=== PATIENT | female | born 1990 | race Two or more races ===

== ENCOUNTER 2019-06-07 11:55 | Outpatient (CLI) | payer MEDICAID ==
--- NOTE | 2019-06-07 13:32 | Ultrasound Report ---
Reason: BREAST PAIN RT Procedure Date: 06/07/2019 Accession Number: [id number] / [id number] Procedure: US - Breast Unilateral Limited CPT Code: Final Report FULL RESULT: EXAM: Breast Unilateral Limited DATE: 06/07/2019 12:36 PM CLINICAL HISTORY: BREAST PAIN RT COMPARISON: None. TECHNIQUE: Targeted ultrasound was performed of the right breast in the area of clinical concern in the right upper outer quadrant. Color Doppler was employed as appropriate. FINDINGS: The entire upper outer quadrant of the right breast was carefully examined with grayscale and limited color Doppler ultrasound. Normal breast tissue is identified. Sonographically, there is no mass, fluid collection or architectural distortion by limited color Doppler. IMPRESSION: Negative examination RECOMMENDATION: Recommend clinical correlation and routine annual Screening mammography starting at the age of 40 unless otherwise clinically indicated. BIRADS CATEGORY 1: Negative RADIA
== END 2019-06-07 11:56 | disposition home or self-care (01) ==
LOC: DI 11:55
PROVIDERS: ATTEND Physician Assistant Medical
DX: N64.4 Mastodynia (principal)
CPT/HCPCS: 76642

== ENCOUNTER 2020-06-14 08:00 | Outpatient (CLI) | payer MEDICAID ==
[2020-06-14 18:12] LABS: BASOPHILS % (AUTO) 0.4 %; EOSINOPHILS # (AUTO) 0.1 10^3/uL (0.0-0.7); EOSINOPHILS % (AUTO) 0.7 %; HCT - HEMATOCRIT 38.6 % (37.0-47.0); HGB - HEMOGLOBIN 11.9 g/dL (12.0-16.0); LYMPHOCYTES % (AUTO) 24.5 %; MEAN CORPUSCULAR HEMOGLOBIN 25.5 pg (27.0-31.0); MEAN CORPUSCULAR HGB CONC 30.8 g/dL (32.0-36.0); MEAN CORPUSCULAR VOLUME 82.7 fL (81.0-99.0); MEAN PLATELET VOLUME 12.6 fL (7.9-10.8); MONOCYTES # (AUTO) 0.6 10^3/uL (0.0-1.0); MONOCYTES % (AUTO) 7.3 %; NEUTROPHILS # (AUTO) 5.4 10^3/uL (1.5-6.6); NEUTROPHILS % (AUTO) 66.9 %; PLT - PLATELET COUNT 217 10^3/uL (130-450); RED BLOOD COUNT 4.67 10^6/uL (4.20-5.40); RED CELL DISTRIBUTION WIDTH 15.1 % (12.0-15.0); WHITE BLOOD COUNT 8.1 x10^3/uL (4.8-10.8)
[2020-06-14 18:34] LABS: ALBUMIN 4.4 g/dL (3.2-5.5); ALBUMIN/GLOBULIN RATIO 1.3 (1.0-2.2); BILIRUBIN,TOTAL 0.6 mg/dL (0.2-1.0); CALCIUM 9.3 mg/dL (8.5-10.3); CREATININE 0.7 mg/dL (0.4-1.0); TOTAL PROTEIN 7.7 g/dL (6.7-8.2)
[2020-06-14 18:44] LABS: THYROID STIMULATING HORMONE 2.4 uIU/mL (0.34-5.60)
== END 2020-06-14 23:59 | disposition home or self-care (01) ==
LOC: LAB.WCP 08:00
PROVIDERS: ATTEND Nurse Practitioner Family
DX: R23.3 Spontaneous ecchymoses (principal); E55.9 Vitamin D deficiency, unspecified; R53.82 Chronic fatigue, unspecified
CPT/HCPCS: 36415; 80053; 82306; 84443; 85025

== ENCOUNTER 2020-12-16 14:38 | Emergency (ER) | payer MEDICAID ==
[2020-12-16 15:13] LABS: BASOPHILS % (AUTO) 0.2 %; HCT - HEMATOCRIT 40.4 % (37.0-47.0); HGB - HEMOGLOBIN 12.9 g/dL (12.0-16.0); LYMPHOCYTES # (AUTO) 1.2 10^3/uL (1.5-3.5); LYMPHOCYTES % (AUTO) 9.5 %; MEAN CORPUSCULAR HEMOGLOBIN 25.3 pg (27.0-31.0); MEAN CORPUSCULAR HGB CONC 31.9 g/dL (32.0-36.0); MEAN CORPUSCULAR VOLUME 79.4 fL (81.0-99.0); MEAN PLATELET VOLUME 10.9 fL (7.9-10.8); MONOCYTES # (AUTO) 0.5 10^3/uL (0.0-1.0); MONOCYTES % (AUTO) 3.9 %; NEUTROPHILS # (AUTO) 10.9 10^3/uL (1.5-6.6); NEUTROPHILS % (AUTO) 86.1 %; PLT - PLATELET COUNT 236 10^3/uL (130-450); RED BLOOD COUNT 5.09 10^6/uL (4.20-5.40); RED CELL DISTRIBUTION WIDTH 15.5 % (12.0-15.0); WHITE BLOOD COUNT 12.7 x10^3/uL (4.8-10.8)
[2020-12-16 15:32] LABS: ALBUMIN 4.8 g/dL (3.2-5.5); ALBUMIN/GLOBULIN RATIO 1.3 (1.0-2.2); BILIRUBIN,TOTAL 0.8 mg/dL (0.2-1.0); CALCIUM 9.7 mg/dL (8.5-10.3); CREATININE 0.8 mg/dL (0.4-1.0); POTASSIUM 4.3 mmol/L (3.5-5.0); TOTAL PROTEIN 8.5 g/dL (6.7-8.2)
--- NOTE | 2020-12-16 15:49 | ED Physician Documentation ---
PD HPI ABD PAIN - Stated complaint Stated Complaint: RLQ PX/CHILLS - Chief complaint Chief Complaint: Abd Pain - History obtained from History obtained from: Patient - History of Present Illness Timing - onset: How many days ago (3-4) Timing - duration: Days (3-4) Timing - details: Gradual onset, Waxing and waning Quality: Cramping, Aching, Pain Location: Periumbilical, RLQ Radiation: No: Lower back, Right flank Improved by: BM Worsened by: Eating Associated symptoms: Nausea, Diarrhea (loose stools to watery without blood nor mucous over the past few days.). No: Fever, Vomiting, Constipation, Dysuria, Loss of appetite, Weight loss Similar symptoms before: Has not had sx before Recently seen: Not recently seen Review of Systems Constitutional: reports: Myalgias. denies: Fever, Chills Nose: denies: Rhinorrhea / runny nose, Congestion Throat: denies: Sore throat Respiratory: denies: Cough GI: reports: Abdominal Pain, Nausea, Diarrhea. denies: Vomiting, Constipation, Bloody / black stool : denies: Dysuria, Frequency Skin: denies: Rash PD PAST MEDICAL HISTORY - Past Medical History Cardiovascular: None Respiratory: None Neuro: None Endocrine/Autoimmune: None GI: None - Past Surgical History Past Surgical History: No - Allergies Allergies/Adverse Reactions: Allergies Allergy/AdvReac Type Severity Reaction Status Date / Time cephalexin [From Keflex] Allergy Hives Verified 12/16/20 15:04 - Living Situation Living Situation: reports: With family Living Arrangement: reports: At home - Social History Does the pt smoke?: No Does the pt drink ETOH?: No Does the pt have substance abuse?: No - Family History Family history: reports: Other (aunt with history of crohns disease; no other members. ) PD ED PE NORMAL - Vitals Vital signs reviewed: Yes - General General: Alert and oriented X 3, No acute distress, Well developed/nourished - Neck Neck: Supple, no meningeal sign, No adenopathy - Cardiac Cardiac: RRR, No murmur - Respiratory Respiratory: Clear bilaterally - Abdomen Abdomen: Normal bowel sounds, Soft, Non distended, No organomegaly, Other (Bone tenderness. NeuroYour with some minimal local guarding in the periumbilical to right lower abdomen. Or tenderness. Bowel sounds are present normally active.) - Female Female : Deferred - Rectal Rectal: Deferred - Back Back: No CVA TTP - Derm Derm: Normal color, Warm and dry - Extremities Extremities: No tenderness to palpate, Normal ROM s pain - Neuro Neuro: Alert and oriented X 3, No motor deficit, Normal speech Results - Vitals Vitals: Vital Signs - 24 hr 12/16/20 12/16/20 14:57 17:03 Temperature 36.6 C Heart Rate 106 H 65 Respiratory 16 18 Rate Blood Pressure 150/88 H 156/85 H O2 Saturation 99 99 Oxygen O2 Source Room air - Labs Labs: Laboratory Tests 12/16/20 12/16/20 12/16/20 15:08 15:08 15:08 WBC 12.7 H RBC 5.09 Hgb 12.9 Hct 40.4 MCV 79.4 L MCH 25.3 L MCHC 31.9 L RDW 15.5 H Plt Count 236 MPV 10.9 H Neut # (Auto) 10.9 H Lymph # (Auto) 1.2 L [place] # (Auto) 0.5 Eos # (Auto) 0.0 Baso # (Auto) 0.0 Absolute Nucleated RBC 0.00 Nucleated RBC % 0.0 ESR 7 Sodium 139 Potassium 4.3 Chloride 104 Carbon Dioxide 24 Anion Gap 11.0 BUN 10 Creatinine 0.8 Estimated GFR (MDRD) 83 L Glucose 125 H Calcium 9.7 Total Bilirubin 0.8 AST 16 ALT 13 Alkaline Phosphatase 64 Total Protein 8.5 H Albumin 4.8 Globulin 3.7 Albumin/Globulin Ratio 1.3 Lipase 28 Urine Color Urine Clarity Urine pH Ur Specific [place] Urine Protein Urine Glucose (UA) Urine Ketones Urine Occult Blood Urine Nitrite Urine Bilirubin Urine Urobilinogen Ur Leukocyte Esterase Ur Microscopic Review Urine Culture Comments Urine HCG, Qual 12/16/20 16:53 WBC RBC Hgb Hct MCV MCH MCHC RDW Plt Count MPV Neut # (Auto) Lymph # (Auto) [place] # (Auto) Eos # (Auto) Baso # (Auto) Absolute Nucleated RBC Nucleated RBC % ESR Sodium Potassium Chloride Carbon Dioxide Anion Gap BUN Creatinine Estimated GFR (MDRD) Glucose Calcium Total Bilirubin AST ALT Alkaline Phosphatase Total Protein Albumin Globulin Albumin/Globulin Ratio Lipase Urine Color YELLOW Urine Clarity CLEAR Urine pH 6.0 Ur Specific [place] 1.025 Urine Protein NEGATIVE Urine Glucose (UA) NEGATIVE Urine Ketones >=80 H Urine Occult Blood NEGATIVE Urine Nitrite NEGATIVE Urine Bilirubin NEGATIVE Urine Urobilinogen 0.2 (NORMAL) Ur Leukocyte Esterase NEGATIVE Ur Microscopic Review NOT INDICATED Urine Culture Comments NOT INDICATED Urine HCG, Qual NEGATIVE - Rads (name of study) abd/pelvic CT Radiology: Prelim report reviewed (A normal appendix is not clearly seen. A structure probably the appendix is seen extending into the pelvis however near the tip of the structure there is a Morphis soft tissue density around the appendiceal tip. Consideration for early distal appendicitis.), See rad report PD MEDICAL DECISION MAKING - ED course Complexity details: reviewed results, re-evaluated patient, considered differential, d/w patient, d/w pmo consultant (S/W Rei Wei - who viewed the CT and on my exam findings, felt the patient could go home and return in 12-24 hours for recheck. Sooner if worse. ) Departure - Departure Disposition: 01 Home, Self Care Clinical Impression: Acute colitis Diarrhea Qualifiers: Diarrhea type: unspecified type Qualified Code(s): R19.7 - Diarrhea, unspecified Abdominal pain Qualifiers: Abdominal location: lower abdomen, unspecified Qualified Code(s): R10.30 - Lower abdominal pain, unspecified Condition: Stable Record reviewed to determine appropriate education?: Yes Instructions: ED Abdominal Pain Appendx Poss Comments: Frequent fluids. Regular bland food diet to begin with. It does sound most likely have a "stomach flu" with the diarrhea and crampy pains. However concern would be for triggering other processes. Your blood tests and CT scan show possible mild inflammation around the tip of the appendix. It is not clearly appendicitis at this point, and may be transient inflammation. We want to see if it progresses over the next day or so. Use ondansetron if needed for nausea. Tylenol if needed for mild pains. Return to the ER for recheck in about 24 hours if not well improved. Return sooner if you have more consistent localized pain particularly the right lower abdomen or if you develop fevers, vomiting, bloody stool or other concerns.
[2020-12-16] MEDS ORDERED: SODIUM CHLORIDE 0.9% 1,000 ML IV STA (16:06)
[2020-12-16] MEDS ORDERED: KETOROLAC 30 MG/ML VIAL IVP STA (16:06)
[2020-12-16] MEDS ORDERED: ONDANSETRON 4 MG/2 ML VIAL IVP STA (16:06)
[2020-12-16] MEDS ORDERED: IOPAMIDOL-300 100 ML VIAL ONE (16:53)
[2020-12-16 17:07] LABS: BILIRUBIN,URINE NEGATIVE (NEGATIVE); GLUCOSE, URINE (UA) NEGATIVE (NEGATIVE); KETONES,URINE (UA) >=80 mg/dL (NEGATIVE); LEUKOCYTE ESTERASE, URINE NEGATIVE (NEGATIVE); NITRITE,URINE NEGATIVE (NEGATIVE); OCCULT BLOOD,URINE NEGATIVE (NEGATIVE); PROTEIN,URINE NEGATIVE (NEGATIVE); UROBILINOGEN,URINE 0.2 (NORMAL) E.U./dL (NORMAL)
[2020-12-16 17:10] LABS: CLARITY,URINE CLEAR (CLEAR); HCG UR QUAL NEGATIVE
[2020-12-16 17:11] VITALS: BP 156/85
[2020-12-16] MEDS ORDERED: IOPAMIDOL-300 100 ML VIAL IVP ONE (17:30)
--- NOTE | 2020-12-16 17:52 | CT Report ---
PROCEDURE: Abdomen/Pelvis W INDICATIONS: mid abd to RLQ pain for few days CONTRAST: IV CONTRAST: Isovue 300 ml: 100 PO CONTRAST: *NO PO CONTRAST TECHNIQUE: After the administration of 100 contrast, 5 mm thick sections acquired from the diaphragms to the sym physis. 5 mm thick coronal and sagittal reformats were acquired. For radiation dose reduction, the following was used: automated exposure control, adjustment of mA and/or kV according to patient size . COMPARISON: None. FINDINGS: Image quality: Excellent. ABDOMEN: Lung bases: Lung bases are clear. Heart size is normal. Solid organs: Liver and spleen are normal in size and enhancement. Gallbladder is normal. Biliary system is non dilated. Pancreas enhances normally. No adrenal nodules. Kidneys demonstrate normal size and enhancement, without hydronephrosis. Peritoneum and bowel: Bowel loops demonstrate normal wall thickness and caliber. No free fluid or a ir. The appendix is not definitively visualized. A structure which is probably the appendix is seen e xtending into the pelvis, however near the tip of this structure there is amorphous soft tissue densi ty around the appendiceal tip and right adnexa. There is fluid in the right pelvis. Nodes and vessels: No retroperitoneal or mesenteric adenopathy by size criteria. Aorta and inferior vena cava are normal in size. Miscellaneous: No ventral hernias. PELVIS: Genitourinary: Bladder wall thickness is normal. The left ovary has multiple cysts, the largest emili suring 2.1 x 1.5 cm. Miscellaneous: No inguinal hernias or adenopathy. Bones: No suspicious bony lesions. No vertebral body compression fractures. IMPRESSION: A normal appendix is not definitively visualized. A structure which is probably appendix extends into the pelvis and terminates within an area of amorphous soft tissue density around the ap pendiceal tip and right adnexa. Differential diagnosis includes appendiceal tip appendicitis or right ovarian/adnexal pathology. Reviewed by: Anjel Del Rio on 12/16/2020 5:51 PM PDT Approved by: Anjel Del Rio on 12/16/2020 5:51 PM PDT Station ID: [id number]
[2020-12-16] MEDS: LOPERAMIDE 2 MG CAPSULE PO STA ×2 (18:17→18:21)
[2020-12-16] MEDS ORDERED: ONDANSETRON ODT 4 MG Prepack 2 TL PRN (18:37)
[2020-12-16] MEDS ORDERED: ACETAMINOPHEN 325 MG TABLET PO STA (18:37)
== END 2020-12-16 18:55 | disposition home or self-care (01) ==
LOC: ED 14:38
DX: K52.9 Noninfective gastroenteritis and colitis, unspecified (principal)
CPT/HCPCS: 36415; 74177; 80053; 81003; 81025; 83690; 85025; 85651; 96361; 96374; 99284; A9270; Q9967; 81001; 87086

== ENCOUNTER 2020-12-26 14:12 | Emergency (ER) | payer MEDICAID ==
--- NOTE | 2020-12-26 16:26 | ED Physician Documentation ---
PD HPI ABD PAIN - Stated complaint Stated Complaint: RECTAL PX/BLEEDING - Chief complaint Chief Complaint: Abd Pain - History obtained from History obtained from: Patient - Additional information Additional information: 30yo F noted rectal lump with bleeding x 6 days. "pinching" pain. Has had diarrhea, improved now. PD PAST MEDICAL HISTORY - Past Medical History Cardiovascular: None Respiratory: None Neuro: None Endocrine/Autoimmune: None GI: None Psych: Anxiety - Past Surgical History Past Surgical History: No - Present Medications Home Medications: Ambulatory Orders Medication Instructions Recorded Confirmed Hydrocortisone [Anusol-Hc] 30 gm RC QID #20 unit 12/26/20 - Allergies Allergies/Adverse Reactions: Allergies Allergy/AdvReac Type Severity Reaction Status Date / Time cephalexin [From Keflex] Allergy Hives Verified 12/26/20 14:28 - Social History Does the pt smoke?: No Smoking Status: Never smoker Does the pt drink ETOH?: No Does the pt have substance abuse?: No PD ED PE NORMAL - Vitals Vital signs reviewed: Yes - Abdomen Abdomen: Normal bowel sounds, Soft, Non tender - Female Female : [employer] Director present, Other (On the left side she has a small acutely thrombosed hemorrhoid) - Neuro Neuro: Alert and oriented X 3, Normal speech Results - Vitals Vitals: Vital Signs - 24 hr 12/26/20 12/26/20 14:24 16:11 Temperature 36.4 C L 37.1 C Heart Rate 78 96 Respiratory 18 24 Rate Blood Pressure 136/82 H 146/90 H O2 Saturation 100 100 Oxygen O2 Source Room air Departure - Departure Disposition: 01 Home, Self Care Clinical Impression: Hemorrhoid Qualifiers: Hemorrhoid type: unspecified Qualified Code(s): K64.9 - Unspecified hemorrhoids Condition: Good Record reviewed to determine appropriate education?: Yes Instructions: ANUSOL-HC Suppositories, ED Hemorrhoids Prescriptions: Hydrocortisone [Anusol-Hc] 30 gm RC QID #20 unit Comments: Follow-up with your new primary care physician as scheduled. Return for new or worsening symptoms.
[2020-12-26 16:43] VITALS: BP 140/80
== END 2020-12-26 16:43 | disposition home or self-care (01) ==
LOC: ED 14:12
DX: K64.5 Perianal venous thrombosis (principal)
CPT/HCPCS: 99282

== ENCOUNTER 2021-04-07 20:59 | Emergency (ER) | payer MEDICAID ==
--- NOTE | 2021-04-07 21:34 | XRAY Report ---
PROCEDURE: Chest 1 View X-Ray INDICATIONS: Chest pain TECHNIQUE: One view of the chest was acquired. COMPARISON: Lung bases on CT abdomen and pelvis 12/16/2020. FINDINGS: Surgical changes and devices: None. Lungs and pleura: No pleural effusions or pneumothorax. Lungs are clear. Mediastinum: Mediastinal contours appear normal. Heart size is normal. Bones and chest wall: No suspicious bony lesions. Overlying soft tissues appear unremarkable. IMPRESSION: No acute cardiopulmonary abnormality. Reviewed by: Russ Rock MD on 04/07/2021 9:32 PM PST Approved by: Russ Rock MD on 04/07/2021 9:32 PM PST Station ID: [id number]
[2021-04-07 21:48] LABS: BASOPHILS % (AUTO) 0.3 %; EOSINOPHILS % (AUTO) 0.2 %; HCT - HEMATOCRIT 38.5 % (37.0-47.0); HGB - HEMOGLOBIN 13.2 g/dL (12.0-16.0); LYMPHOCYTES # (AUTO) 3.1 10^3/uL (1.5-3.5); LYMPHOCYTES % (AUTO) 26.5 %; MEAN CORPUSCULAR HGB CONC 34.3 g/dL (32.0-36.0); MEAN CORPUSCULAR VOLUME 75.9 fL (81.0-99.0); MEAN PLATELET VOLUME 11.7 fL (7.9-10.8); MONOCYTES # (AUTO) 0.8 10^3/uL (0.0-1.0); MONOCYTES % (AUTO) 6.9 %; NEUTROPHILS # (AUTO) 7.6 10^3/uL (1.5-6.6); NEUTROPHILS % (AUTO) 65.8 %; PLT - PLATELET COUNT 231 10^3/uL (130-450); RED BLOOD COUNT 5.07 10^6/uL (4.20-5.40); RED CELL DISTRIBUTION WIDTH 14.7 % (12.0-15.0); WHITE BLOOD COUNT 11.6 x10^3/uL (4.8-10.8)
[2021-04-07 22:07] LABS: ALBUMIN 4.4 g/dL (3.2-5.5); ALBUMIN/GLOBULIN RATIO 1.3 (1.0-2.2); BILIRUBIN,TOTAL 0.7 mg/dL (0.2-1.0); CALCIUM 9.4 mg/dL (8.5-10.3); CREATININE 0.8 mg/dL (0.4-1.0); POTASSIUM 2.9 mmol/L (3.5-5.0); TOTAL PROTEIN 7.7 g/dL (6.7-8.2)
[2021-04-07] MEDS ORDERED: LORazepam 2 MG/ML VIAL IVP STA (22:35)
--- NOTE | 2021-04-07 22:37 | ED Physician Documentation ---
PD HPI DYSPNEA - Stated complaint Stated Complaint: CP, SOA W/ CARDIAC HX - Chief complaint Chief Complaint: Cardiac - Additional information Additional information: Is 30-year-old female presenting to the emergency department with shortness of breath. 1 week history shortness of breath that the patient reports "comes and goes". Today had right-sided chest pain which is what prompted her to come in to the emergency department. Endorses for past medical significant for childhood asthma. States that she has a history of atrial fibrillation and was told by her doctor to not get vaccination for the novel coronavirus because of this condition. Also reports significant life stressors over the course of the last few months. She reports taking Xanax at home to help with her symptoms. States that she was prescribed 14 total Xanax around and has been taking infrequent Xanax since that time. Denies any Alcohol or other illicit substance abuse. Denies suicidal or homicidal ideation. Review of Systems Ten Systems: 10 systems reviewed and negative Constitutional: denies: Fever Eyes: denies: Loss of vision Ears: denies: Loss of hearing Nose: denies: Rhinorrhea / runny nose Throat: denies: Dental pain / toothache Cardiac: reports: Chest pain / pressure Respiratory: reports: Dyspnea GI: denies: Abdominal Pain, Nausea, Vomiting : denies: Dysuria PD PAST MEDICAL HISTORY - Past Medical History Cardiovascular: None Respiratory: None, Asthma Neuro: None Endocrine/Autoimmune: None GI: None Psych: Anxiety - Past Surgical History Past Surgical History: No - Present Medications Home Medications: Ambulatory Orders Medication Instructions Recorded Confirmed Hydrocortisone [Anusol-Hc] 30 gm RC QID #20 unit 12/26/20 Potassium Chloride 20 meq PO DAILY #30 tab 04/08/21 hydrOXYzine HCL [Hydroxyzine HCl] 25 mg PO Q6HR PRN #30 tablet 04/08/21 - Allergies Allergies/Adverse Reactions: Allergies Allergy/AdvReac Type Severity Reaction Status Date / Time cephalexin [From Keflex] Allergy Hives Verified 04/07/21 21:09 - Social History Does the pt smoke?: No Smoking Status: Never smoker Does the pt drink ETOH?: No Does the pt have substance abuse?: No - POLST Patient has POLST: No PD ED PE NORMAL - Vitals Vital signs reviewed: Yes - General General: Alert and oriented X 3 - HEENT HEENT: Atraumatic - Neck Neck: Supple, no meningeal sign - Cardiac Cardiac: RRR - Respiratory Respiratory: No respiratory distress - Abdomen Abdomen: Normal bowel sounds - Female Female : Deferred - Rectal Rectal: Deferred - Extremities Extremities: No deformity - Neuro Neuro: Alert and oriented X 3 - Psych Psych: Other (Anxious affect) Results - Vitals Vitals: Vital Signs - 24 hr 04/07/21 04/07/21 04/07/21 21:01 21:30 22:30 Temperature 36.7 C Heart Rate 130 H 93 75 Respiratory 21 16 15 Rate Blood Pressure 169/130 H 131/88 H 117/78 O2 Saturation 100 98 99 04/07/21 04/07/21 04/07/21 22:45 23:00 23:01 Temperature Heart Rate 71 70 68 Respiratory 14 12 13 Rate Blood Pressure 117/78 122/89 H 122/89 H O2 Saturation 100 99 100 04/07/21 23:47 Temperature Heart Rate 58 L Respiratory 18 Rate Blood Pressure 124/78 O2 Saturation 99 Oxygen O2 Source Room air - EKG (time done) 2102 Rate: Rate (enter#) (130), Jose Daniel Rhythm: NSR [place]: Normal Intervals: Normal [place] QRS: Normal Ischemia: Normal ST segments Computer interpretation: Agree with computer - Labs Labs: Laboratory Tests 04/07/21 04/07/21 04/07/21 21:30 21:30 21:30 WBC 11.6 H RBC 5.07 Hgb 13.2 Hct 38.5 MCV 75.9 L MCH 26.0 L MCHC 34.3 RDW 14.7 Plt Count 231 MPV 11.7 H Neut # (Auto) 7.6 H Lymph # (Auto) 3.1 [place] # (Auto) 0.8 Eos # (Auto) 0.0 Baso # (Auto) 0.0 Absolute Nucleated RBC 0.00 Nucleated RBC % 0.0 D-Dimer Sodium 137 Potassium 2.9 L Chloride 106 Carbon Dioxide 16 L Anion Gap 15.0 H BUN 11 Creatinine 0.8 Estimated GFR (MDRD) 83 L Glucose 118 H Calcium 9.4 Total Bilirubin 0.7 AST 19 ALT 14 Alkaline Phosphatase 59 Troponin I High Sens 4.1 Total Protein 7.7 Albumin 4.4 Globulin 3.3 Albumin/Globulin Ratio 1.3 Lipase 30 04/07/21 22:15 WBC RBC Hgb Hct MCV MCH MCHC RDW Plt Count MPV Neut # (Auto) Lymph # (Auto) [place] # (Auto) Eos # (Auto) Baso # (Auto) Absolute Nucleated RBC Nucleated RBC % D-Dimer 324.7 H Sodium Potassium Chloride Carbon Dioxide Anion Gap BUN Creatinine Estimated GFR (MDRD) Glucose Calcium Total Bilirubin AST ALT Alkaline Phosphatase Troponin I High Sens Total Protein Albumin Globulin Albumin/Globulin Ratio Lipase PD MEDICAL DECISION MAKING - ED course Complexity details: reviewed results, d/w patient ED course: Patient is a 30-year-old female presenting to the emergency department with shortness of breath, chest pain and anxiety. Tachycardic on arrival to the emergency department with sinus tachycardia noted on EKG. Persistent sinus tachycardia noted on telemetry in the emergency department. At no time was anything other than a sinus rhythm identified on continuous telemetry. Comprehensive labs obtained demonstrated a hypokalemia and she was given potassium and magnesium repletion empirically. Additionally nursing staff reported significant anxiety and she was given dose of Ativan in the emergency department. Chest x-ray was nonacute. Her D-dimer was mildly elevated and I did obtain a CT PE protocol which was negative for any acute intrathoracic pathology. She was observed in the emergency department for several hours. On reevaluation she continued to endorse for feeling extremely anxious and short of breath. I reassured her that her evaluation in the emergency department was benign. Notably she was having no difficulty with speech, was not tachypneic, and had appropriate oxygen saturations at all times while in the emergency department. She does have a viral respiratory panel including a novel coronavirus test pending at this time. I did discuss with her the severity of her anxiety and offered to allow her to stay in the emergency department to be evaluated by [employer], or encouraged her to follow-up with her primary care doctor and her primary care psychologist. Additionally I'll discharge her on a short course of Atarax as well as a potassium supplement. Otherwise clear return precautions and follow-up instructions were given prior to discharge. Departure - Departure Disposition: 01 Home, Self Care Clinical Impression: Chest pain, Dyspnea, Hypokalemia, Anxiety Instructions: Hypokalemia Dc, ED Stress React, ED Chest Pain Atypical Unkn Cause Prescriptions: hydrOXYzine HCL [Hydroxyzine HCl] 25 mg PO Q6HR PRN #30 tablet PRN Reason: Agitation Potassium Chloride 20 meq PO DAILY #30 tab Comments: Thank you for allowing us to care for you today at [facility]. All of the testing performed in the emergency department today including your EKG, blood work, x-ray and the CT scan of your chest were all very reassuring. You did have some mild hypokalemia, also known as low blood potassium. I will be discharging with a potassium supplement. Also be writing a prescription for some Atarax to take at home for anxiety. Please follow-up with your primary care doctor soon as possible. If it anytime you have any new or worsening symptoms please not hesitate to return to the emergency department.
[2021-04-07] MEDS ORDERED: POTASSIUM CHLORIDE 20 MEQ/15 ML UDC PO SCH (22:42)
[2021-04-07] MEDS ORDERED: MAGNESIUM OXIDE 400 MG TABLET PO SCH (22:42)
[2021-04-07] MEDS ORDERED: iohexoL-300 100 ML VIAL ONE (22:49)
[2021-04-07 23:48] VITALS: BP 124/78
--- NOTE | 2021-04-07 23:59 | CT Report ---
PROCEDURE: ANGIO CHEST W/WO INDICATIONS: CP, elevated d dimer CONTRAST: IV CONTRAST: Isovue 300 ml: 100 PO CONTRAST: *NO PO CONTRAST TECHNIQUE: After the administration of intravenous contrast, 2 mm axial images were acquired from the pulmonary apices to the posterior costophrenic angles during the arterial phase. In addition, 1 mm lung kernel and 5 mm soft tissue kernel reconstructions were performed. 3-dimensional coronal oblique maximum int ensity projection (MIP) reformats, 8 mm axial MIP, and 5 mm coronal and sagittal MPR reformats were t hen performed through the thorax. For radiation dose reduction, the following was used: automated exp osure control, adjustment of mA and/or kV according to patient size. COMPARISON: 04/07/21 chest plain film. FINDINGS: Image quality: Excellent. Pulmonary arteries: Pulmonary arteries are normal in size, and demonstrate no intraluminal filling d efects to suggest central pulmonary embolism. Lungs and pleura: Lungs are clear. No pleural effusions or pneumothorax. Central and peripheral ai rways are patent. Mediastinum: Heart size is normal, without pericardial effusion. No mediastinal or hilar adenopathy . Thoracic aorta is normal in caliber and enhancement. Esophagus is normal in caliber, without hiat al hernia. Bones and chest wall: No suspicious bony lesions. Ribs and thoracic spine appear intact throughout. No axillary or supraclavicular adenopathy. The thyroid is normal in size and there are no incident al findings. Abdomen: Visualized upper abdominal solid organs appear normal in the early arterial phase of enhanc ement. IMPRESSION: No pulmonary embolus is found, there is no sign of cardiomegaly or CHF. The source of current reporte d chest pain and shortness of breath is not seen. CLINICAL RECOMMENDATION STATEMENTS: In patients <35 years with an ITN detected on CT, MRI, or extrathyroidal ultrasound, the Committee re commends further evaluation with dedicated thyroid ultrasound if the nodule is "e1 cm and has no susp icious imaging features, and if the patient has normal life expectancy. In patients "e35 years with an ITN detected on CT, MRI, or extrathyroidal ultrasound, the Committee r ecommends further evaluation with dedicated thyroid ultrasound if the nodule is "e1.5 cm and has no s uspicious imaging features, and if the patient has normal life expectancy. (ACR, 2014) Reviewed by: Jose Hall MD on 04/07/2021 11:58 PM PST Approved by: Jose Hall MD on 04/07/2021 11:58 PM PST Station ID: [id number]
[2021-04-08] MEDS ORDERED: iohexoL-300 100 ML VIAL IVP ONE (00:46)
== END 2021-04-08 00:27 | disposition home or self-care (01) ==
LOC: ED 20:59
DX: E87.6 Hypokalemia (principal); F41.9 Anxiety disorder, unspecified; R00.0 Tachycardia, unspecified; R06.00 Dyspnea, unspecified; Z20.822 Contact with and (suspected) exposure to COVID-19
CPT/HCPCS: 36415; 71045; 71275; 80053; 83690; 84484; 85025; 85379; 87635; 93005; 99284; A9270; J2060; Q9967

== ENCOUNTER 2021-04-09 08:25 | Emergency (ER) | payer MEDICAID ==
[2021-04-09] MEDS ORDERED: DEXAMETHASONE 10 MG/ML VIAL PO STA (09:14)
[2021-04-09] MEDS ORDERED: CHERRY SYRUP 10 ML UDC PO ONE (09:14)
--- NOTE | 2021-04-09 09:23 | ED Physician Documentation ---
PD HPI DYSPNEA - Stated complaint Stated Complaint: SOA/FEVER/COUGH - Chief complaint Chief Complaint: Resp - History obtained from History obtained from: Patient - History of Present Illness Timing - onset: How many days ago (4) Timing - onset during: Rest Timing - duration: Days (4) Timing - details: Gradual onset, Still present, Still present in ED Inciting event(s): URI Improved by: Rest Worsened by: Exertion, Coughing Associated symptoms: Cough, Anxiety Similar symptoms before: Diagnosis (panic attack) Recently seen: Emergency Dept - Additional information Additional information: 28-year-old female has developed some dyspnea and she has become anxious regarding the dyspnea as she is not immunized against COVID. She was seen in the emergency department and had a thorough work-up done by Dr. Lama [address] days [address] This included [address] angio of the chest. The patient indicates that she is having a difficult time getting a full deep breath and she is becoming more anxious associated with this. She does have a cough she is producing yellow- green phlegm and she has used an inhaler previously. 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 : None HEENT: None Psych: Anxiety Musculoskeletal: None Derm: None - Past Surgical History Past Surgical History: No - Present Medications Home Medications: Ambulatory Orders Medication Instructions Recorded Confirmed Albuterol Sulf [Ventolin Hfa 1 - 2 puffs INH Q4HR PRN #1 inhaler 04/09/21 Inhaler] Alprazolam [Xanax] 0.25 mg PO DAILY PRN 04/09/21 04/09/21 Azithromycin [Zithromax] 250 mg PO DAILY #6 tablet 04/09/21 dexAMETHasone [Decadron] 4 mg PO DAILY #5 tablet 04/09/21 - Allergies Allergies/Adverse Reactions: Allergies Allergy/AdvReac Type Severity Reaction Status Date / Time cephalexin [From Keflex] Allergy Hives Verified 04/09/21 08:38 - Social History Does the pt smoke?: No Smoking Status: Never smoker Does the pt drink ETOH?: No Does the pt have substance abuse?: No - Immunizations Immunizations are current?: No Immunizations: Other immun not current - POLST Patient has POLST: No PD ED PE NORMAL - Vitals Vital signs reviewed: Yes (Tachycardic and hypertensive) - General General: Alert and oriented X 3, Well developed/nourished, Other (Appears anxious and has flattened affect) - HEENT HEENT: Atraumatic, PERRL, EOMI, Ears normal, Moist mucous membranes, Pharynx benign, Dentition benign - Neck Neck: Supple, no meningeal sign, No bony TTP - Cardiac Cardiac: RRR, No murmur - Respiratory Respiratory: No respiratory distress, Other (Diminished breath sounds bilaterally without focal wheezes) - Abdomen Abdomen: Soft, Non tender - Back Back: No CVA TTP, No spinal TTP - Derm Derm: Normal color, Warm and dry, No rash - Extremities Extremities: No deformity, No edema - Neuro Neuro: Alert and oriented X 3, 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, No motor deficit, No sensory deficit, Normal speech Eye Opening: Spontaneous Motor: Obeys Commands Verbal: Oriented GCS Score: 15 - Psych Psych: Normal mood, Normal affect Results - Vitals Vitals: Vital Signs - 24 hr 04/09/21 08:38 Temperature 36.9 C Heart Rate 110 H Respiratory 22 Rate Blood Pressure 126/86 H O2 Saturation 100 Oxygen O2 Source Room air - Rads (name of study) CXR Radiology: Prelim report reviewed (Impression: Normal exam.), EMP read indep edently, See rad report PD MEDICAL DECISION MAKING - ED course Complexity details: reviewed results, re-evaluated patient, considered differential, d/w patient ED course: 30-year-old female with dyspnea and cough productive of phlegm has restriction to her air movement. She is administered dexamethasone orally and a x-ray of her chest is obtained. She has had prior COVID testing results are not back. Second COVID test is administered today. Departure - Departure Disposition: 01 Home, Self Care Clinical Impression: Viral URI with cough Condition: Stable Instructions: ED Bronchitis Asthmatic Follow-Up: Latrice Gold MD [Primary Care Provider] - Prescriptions: Albuterol Sulf [Ventolin Hfa Inhaler] 1 - 2 puffs INH Q4HR PRN #1 inhaler PRN Reason: Shortness Of Air/Wheezing dexAMETHasone [Decadron] 4 mg PO DAILY #5 tablet Azithromycin [Zithromax] 250 mg PO DAILY #6 tablet Comments: Solange, today your chest x-ray is clear. You do have some reactive airway disease and production of sputum consistent with asthmatic bronchitis and we are prescribing some inhaler and antibiotic as well as a short course of steroid. [facility] [place] The expectation is improved breathing day by day. Your COVID test is pending from today and your COVID test from 2 days ago is also pending.
--- NOTE | 2021-04-09 09:42 | XRAY Report ---
PROCEDURE: Chest 1 View X-Ray INDICATIONS: Shortness of breath TECHNIQUE: One view of the chest was acquired. COMPARISON: 04/07/2021 FINDINGS: Surgical changes and devices: None. Lungs and pleura: No pleural effusions or pneumothorax. Lungs are clear. Mediastinum: Mediastinal contours appear normal. Heart size is normal. Bones and chest wall: No suspicious bony lesions. Overlying soft tissues appear unremarkable. IMPRESSION: Normal exam. Reviewed by: Jeffrey Tidwell MD on 04/09/2021 8:41 AM [facility] Approved by: Jeffrey Tidwell MD on 04/09/2021 8:41 AM [facility] Station ID: [id number]
[2021-04-09 09:54] VITALS: BP 152/70
== END 2021-04-09 10:01 | disposition home or self-care (01) ==
LOC: ED 08:25
DX: J06.9 Acute upper respiratory infection, unspecified (principal); Z20.822 Contact with and (suspected) exposure to COVID-19
CPT/HCPCS: 71045; 87635; 99283; 99284; A9270

== ENCOUNTER 2021-04-20 12:30 | Outpatient (CLI) | payer MEDICAID | END 2021-04-20 12:31 | disposition critical access hospital (66) | LOC: EMS 12:30 | DX: R42 Dizziness and giddiness (principal) | CPT/HCPCS: A0425; A0429; A0999 ==

== ENCOUNTER 2021-04-20 12:53 | Emergency (ER) | payer MEDICAID ==
[2021-04-20] MEDS ORDERED: SODIUM CHLORIDE 0.9% 1,000 ML IV STA (13:02)
[2021-04-20 13:22] LABS: BASOPHILS % (AUTO) 0.2 %; EOSINOPHILS % (AUTO) 0.1 %; HCT - HEMATOCRIT 40.1 % (37.0-47.0); HGB - HEMOGLOBIN 13.3 g/dL (12.0-16.0); LYMPHOCYTES # (AUTO) 4.6 10^3/uL (1.5-3.5); LYMPHOCYTES % (AUTO) 26.5 %; MEAN CORPUSCULAR HEMOGLOBIN 25.9 pg (27.0-31.0); MEAN CORPUSCULAR HGB CONC 33.2 g/dL (32.0-36.0); MEAN CORPUSCULAR VOLUME 78.2 fL (81.0-99.0); MEAN PLATELET VOLUME 11.5 fL (7.9-10.8); MONOCYTES % (AUTO) 5.6 %; NEUTROPHILS # (AUTO) 11.5 10^3/uL (1.5-6.6); NEUTROPHILS % (AUTO) 67.1 %; PLT - PLATELET COUNT 294 10^3/uL (130-450); RED BLOOD COUNT 5.13 10^6/uL (4.20-5.40); RED CELL DISTRIBUTION WIDTH 15.9 % (12.0-15.0); WHITE BLOOD COUNT 17.2 x10^3/uL (4.8-10.8)
--- NOTE | 2021-04-20 13:23 | ED Physician Documentation ---
History of Present Illness - Stated complaint Stated Complaint: DIZZY - Additonal information Additional information: 30-year-old female presents to the emergency department for evaluation of a near syncopal episode. Over the last few weeks she has been encountering shortness of air. This is her third ED visit for similar. She has had CT pulmonary angio that did not reveal a PE. Seen just a few days ago and diagnosed with a bronchitis and started on oral steroids. Though the patient has finished a course of azithromycin she continues to feel short of air especially with exertion. She did try taking her albuterol this morning and after climbing the stairs at her home she began to feel very dizzy and fell to the ground. She did not lose consciousness but felt as though she would. Patient states that over the summer she was diagnosed with atrial fib and had a Holter monitor placed she does not yet know those results. She was also diagnosed with orthostatic hypotension but has not yet had a formal treatment plan put into place. 9 she has been tested for COVID 3 times and is negative. She denies any nausea or vomiting. No dysuria abdominal pain or diarrhea. She has had a lot of sinus congestion and the Flonase makes her nose griffith so she is concerned she could have a sinus infection. Reports green nasal discharge. Patient states that she has a longstanding history of anxiety was typically managing it with Xanax but ran out 3 weeks ago and has not been able to have it refilled. She states that other medications such as hydroxyzine or SSRIs worsened her symptoms. Review of Systems Constitutional: denies: Fever, Chills Eyes: reports: Reviewed and negative Ears: reports: Reviewed and negative Nose: reports: Congestion Throat: reports: Reviewed and negative Cardiac: reports: Palpitations Respiratory: reports: Dyspnea. 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 : None HEENT: None Psych: Anxiety Musculoskeletal: None Derm: None - Past Surgical History Past Surgical History: No - Present Medications Home Medications: Ambulatory Orders Medication Instructions Recorded Confirmed Albuterol Sulf [Ventolin Hfa 1 - 2 puffs INH Q4HR PRN #1 inhaler 04/09/21 Inhaler] Alprazolam [Xanax] 0.25 mg PO DAILY PRN 04/09/21 04/09/21 Azithromycin [Zithromax] 250 mg PO DAILY #6 tablet 04/09/21 dexAMETHasone [Decadron] 4 mg PO DAILY #5 tablet 04/09/21 - Allergies Allergies/Adverse Reactions: Allergies Allergy/AdvReac Type Severity Reaction Status Date / Time cephalexin [From Keflex] Allergy Hives Verified 04/20/21 13:07 - Social History Does the pt smoke?: No Smoking Status: Never smoker Does the pt drink ETOH?: No Does the pt have substance abuse?: No - Immunizations Immunizations are current?: No Immunizations: Other immun not current - POLST Patient has POLST: No PD ED PE EXPANDED - General General: Anxious - Neck Neck: Supple w/out meningeal sx. No: Adenopathy - Cardiac Cardiac: Regular Rate, Pedal strong equal, Cap refill < 2 sec. No: Murmur Present - Respiratory Respiratory: Clear to ausultation trudi. No: Distress, Labored - Abdomen Abdomen: Normal Bowel sounds. No: Tender to palpation - Derm Derm: Normal color, Warm and dry. No: Rash - Extremities Extremities: Normal. No: Deformity, Tenderness - Neuro Neuro: Alert and Oriented X 3, CNII-XII intact - GCS Verbal: Oriented - Psych Psych: Tearful, Anxious Results - Vitals Vitals: Vital Signs - 24 hr 04/20/21 04/20/21 04/20/21 13:00 13:07 13:27 Temperature 37 C Heart Rate 76 89 Heart Rate [ 68 Sitting] Heart Rate [ 88 Standing] Heart Rate [ 69 Supine] Respiratory 20 20 Rate Blood Pressure 134/85 H 124/86 H Blood Pressure 156/85 H [Sitting] Blood Pressure 124/86 H [Standing] Blood Pressure 138/91 H [Supine] O2 Saturation 100 100 Oxygen O2 Source Room air - EKG (time done) 1300 Rate: Rate (enter#) (72) Rhythm: NSR (sinus arrythmia) [place]: Normal, Other Intervals: Normal AR QRS: Normal Ischemia: Normal ST segments Compare to prior EKG: Old EKG unavailable Computer interpretation: Agree with computer - Labs Labs: Laboratory Tests 04/20/21 04/20/2104/20/22 13:15 13:15 13:42 WBC 17.2 H RBC 5.13 Hgb 13.3 Hct 40.1 MCV 78.2 L MCH 25.9 L MCHC 33.2 RDW 15.9 H Plt Count 294 MPV 11.5 H Neut # (Auto) 11.5 H Lymph # (Auto) 4.6 H [place] # (Auto) 1.0 Eos # (Auto) 0.0 Baso # (Auto) 0.0 Absolute Nucleated RBC 0.00 Nucleated RBC % 0.0 Sodium 136 Potassium 3.3 L Chloride 105 Carbon Dioxide 20 L Anion Gap 11.0 BUN 9 Creatinine 0.8 Estimated GFR (MDRD) 83 L Glucose 103 H Calcium 9.4 Total Bilirubin 0.5 AST 16 ALT 18 Alkaline Phosphatase 51 Total Protein 7.7 Albumin 4.3 Globulin 3.4 Albumin/Globulin Ratio 1.3 Lipase 30 Urine Color YELLOW Urine Clarity CLEAR Urine pH 7.0 Ur Specific [place] 1.025 Urine Protein NEGATIVE Urine Glucose (UA) NEGATIVE Urine Ketones NEGATIVE Urine Occult Blood NEGATIVE Urine Nitrite NEGATIVE Urine Bilirubin NEGATIVE Urine Urobilinogen 0.2 (NORMAL) Ur Leukocyte Esterase NEGATIVE Ur Microscopic Review NOT INDICATED Urine Culture Comments NOT INDICATED Urine HCG, Qual NEGATIVE - Rads (name of study) CXR Radiology: Final report received (No acute cardiopulmonary process) PD MEDICAL DECISION MAKING - ED course Complexity details: reviewed old records, reviewed results, re-evaluated patient, considered differential, d/w patient ED course: 30-year-old female presents emergency department for evaluation of a near syncopal episode. She has a longstanding history of anxiety and ran out of her Xanax about 3 weeks ago. Over the last few weeks she has been having increasing shortness of air. She has been evaluated previously in this emergency department had a negative CT pulmonary angio. Also recently diagnosed with bronchitis and completed a course of steroids as well as azithromycin. She does state that she was previously been told that she has atrial fibrillation though it is not present today. She is also been told she has orthostatic hypotension. Her orthostatics were obtained today and were unremarkable. While here in the emergency department she has been in sinus rhythm. Screening labs were unremarkable with the exception of mildly elevated white blood cell count which I suspect is due to the recently completed course of steroids. Chest x-ray is without acute focal opacity. Urine showed no signs of infection she has no fevers. Patient does present is an exceedingly anxious. However she did decline lorazepam here in the emergency department. She has not tolerated SSRIs and/or hydroxyzine in the past. She does have close follow-up scheduled with her primary care doctor as well as her therapist. I have encouraged her to discuss longer-term management of her anxiety as well as alternatives to benzodiazepines. The cause of her near fainting episode today is not clear though I suspect it may be related to her anxiety or a vasovagal reaction after climbing stairs. She did not have any chest pain. Emergent return precautions were discussed. Departure - Departure Disposition: Home, Self Care Clinical Impression: Near syncope, Anxiety Condition: Stable Record reviewed to determine appropriate education?: Yes Instructions: ED Anxiety Reaction , ED Near Syncope Unkn Comments: Solange you are seen in the emergency department today for a near fainting episode. For the last few weeks you have been having some shortness of air. You just completed a course of steroids as well as some antibiotics. Your chest x-ray today is normal. Your vital signs have been normal. Your EKG and labs are all essentially normal. The only significant abnormality was an elevated white blood cell count. However we often see this after completion of steroids. It is important that you continue to follow-up your near fainting episode with your primary care doctor. Some of this may be related to your anxiety. It is important that you discuss longer-term management of anxiety with your therapist as well as your doctor. If you develop any fever higher than 102, have sudden severe chest pain, or have any lapses in consciousness then please return immediately to the ER for a second evaluation.
[2021-04-20 13:45] LABS: ALBUMIN 4.3 g/dL (3.2-5.5); ALBUMIN/GLOBULIN RATIO 1.3 (1.0-2.2); BILIRUBIN,TOTAL 0.5 mg/dL (0.2-1.0); CALCIUM 9.4 mg/dL (8.5-10.3); CREATININE 0.8 mg/dL (0.4-1.0); POTASSIUM 3.3 mmol/L (3.5-5.0); TOTAL PROTEIN 7.7 g/dL (6.7-8.2)
[2021-04-20] MEDS ORDERED: LORazepam 1 MG TABLET PO STA (14:18)
[2021-04-20 14:31] LABS: BILIRUBIN,URINE NEGATIVE (NEGATIVE); GLUCOSE, URINE (UA) NEGATIVE (NEGATIVE); KETONES,URINE (UA) NEGATIVE (NEGATIVE); LEUKOCYTE ESTERASE, URINE NEGATIVE (NEGATIVE); NITRITE,URINE NEGATIVE (NEGATIVE); OCCULT BLOOD,URINE NEGATIVE (NEGATIVE); PROTEIN,URINE NEGATIVE (NEGATIVE); UROBILINOGEN,URINE 0.2 (NORMAL) E.U./dL (NORMAL)
[2021-04-20 14:32] LABS: CLARITY,URINE CLEAR (CLEAR); HCG UR QUAL NEGATIVE
--- NOTE | 2021-04-20 14:54 | XRAY Report ---
PROCEDURE: Chest 1 View X-Ray INDICATIONS: chest pain TECHNIQUE: One view of the chest was acquired. COMPARISON: CXR 04/09/2021. CT pulmonary angiogram 04/07/2021. FINDINGS: Surgical changes and devices: None. Lungs and pleura: No pleural effusions or pneumothorax. Lungs are clear. Mediastinum: Mediastinal contours appear normal. Heart size is normal. Bones and chest wall: No suspicious bony lesions. Overlying soft tissues appear unremarkable. IMPRESSION: No acute cardiopulmonary abnormality. Reviewed by: Russ Rock MD on 04/20/2021 2:53 PM PST Approved by: Russ Rock MD on 04/20/2021 2:53 PM [facility] Station ID: [id number]
[2021-04-20 15:48] VITALS: BP 133/88
== END 2021-04-20 15:48 | disposition home or self-care (01) ==
LOC: EDUNIT# → ED 12:53
DX: F41.9 Anxiety disorder, unspecified (principal); R55 Syncope and collapse
CPT/HCPCS: 36415; 71045; 80053; 81003; 81025; 83690; 85025; 93005; 99284; J8499; 81001; 87086